=== PATIENT | female | born 1985 | race Caucasian/White ===

== ENCOUNTER 2024-04-22 11:30 | Day surgery (SDC) | payer SELFPAY ==
[2024-04-22 12:08] VITALS: BMI 31.8
[2024-04-22] MEDS ORDERED: hydrALAZINE 20 MG/ML VIAL SLOW IVP PRN (12:34)
[2024-04-22 13:02] LABS: #Basophils 0.04 10x3/uL (0.0-0.2); #Eosinphils 0.07 10x3/uL (0.0-0.5); #Neutrophils 7.27 10x3/uL (1.5-8.4); %Basophils 0.4 % (0.0-2.0); %Eosinophils 0.7 % (0.0-6.0); %Lymphocytes 16.5 % (18.0-47.0); %Monocytes 6.2 % (0.0-10.0); %Neutrophils 75.4 % (40.0-75.0); Hematocrit 34.2 % (34.9-44.5); Hemoglobin 11.2 g/dL (12.0-15.5); Mean Corpuscular HGB CONC 32.7 g/dL (32.0-36.0); Mean Corpuscular Hemoglobin 26.2 pg (27.0-33.0); Mean Corpuscular Volume 80.1 fL (81.6-98.3); Mean Platelet Volume 11.1 fL (7.4-10.4); Platelet Count 215 10x3/uL (150-450); RBC Distribution Width 15.4 % (11.5-14.5); Red Blood Cell (RBC) Count 4.27 10x6/uL (3.90-5.03); White Blood Cell (WBC) Count 9.7 10x3/uL (3.5-10.5)
[2024-04-22 13:06] LABS: Creatinine, Urine 30.84 mg/dL (47-110); Protein, Urine Random Quant Less than 10 mg/dL (1-14)
[2024-04-22 13:21] LABS: ALT (SGPT) 12 U/L (8-55); AST (SGOT) 18 U/L (5-34); Albumin 2.9 g/dL (3.5-5.0); Alkaline Phosphatase 103 U/L (40-110); Anion Gap 12 mmol/L (10-20); BUN (Urea Nitrogen) 8 mg/dL (7.0-18.7); Bilirubin, Total 0.4 mg/dL (0.2-1.2); Calc. Creatinine Clearance 125 mL/min (70-130); Carbon Dioxide 21 mmol/L (22-29); Chloride 106 mmol/L (98-107); Estimated GFR 98; Globulin 3.6 g/dL (2.4-3.5); Glucose 80 mg/dL (70-105); Potassium 3.9 mmol/L (3.5-5.1); Protein, Total 6.5 g/dL (6.0-8.3); Sodium 135 mmol/L (136-145)
[2024-04-22] MEDS: Morphine 4 MG/ML VIAL ONE (14:38)
[2024-04-22] MEDS ORDERED: Morphine 4 MG/ML VIAL IM SCH (14:45)
[2024-04-22] MEDS ORDERED: Lactated Ringer's 1,000 ML IV SCH (15:45)
[2024-04-22] MEDS: Morphine 4 MG/ML VIAL SLOW IVP SCH (16:29)
[2024-04-22 19:47] LABS: Bilirubin Neg (Negative); Blood, Urine Negative (Negative); Clarity Clear (Clear); Glucose, Urine (Dipstick) Normal (Negative); Ketone, Urine Negative (Negative); Leukocyte Negative (Negative); Nitrite Negative (Negative); Protein, Urine (Dipstick) Negative (Neg-Trace); Specific Gravity, Urine 1.015 (1.005-1.030); Urobilinogen Normal mg/dL (Less than 2)
[2024-04-22 20:04] LABS: Bacteria/HPF 1+ HPF (None Seen); CAUTI Indications for Culture Pregnancy; RBC/HPF None Seen HPF (0-3); Squamous Epithelial 0-3 HPF (0-3); WBC/HPF 0-3 HPF (0-3)
[2024-04-22 20:05] LABS: Urine Culture Reflex Yes Yes
== END 2024-04-22 17:09 | disposition home or self-care (01) ==
LOC: CSHLD/OP 11:30
PROVIDERS: ATTEND Obstetrics & Gynecology
DX: O99.891 Other specified diseases and conditions complicating pregnancy (principal); R03.0 Elevated blood-pressure reading, without diagnosis of hypertension; O47.03 False labor before 37 completed weeks of gestation, third trimester; O34.219 Maternal care for unspecified type scar from previous cesarean delivery; Z3A.36 36 weeks gestation of pregnancy; Z79.899 Other long term (current) drug therapy
CPT/HCPCS: 80053; 81001; 82570; 84156; 85025; 87086; J2270

== ENCOUNTER 2024-04-27 07:05 | Inpatient (IN) | payer SELFPAY ==
[2024-04-26 09:52] LABS: Hematocrit 33.6 % (34.9-44.5); Hemoglobin 11.2 g/dL (12.0-15.5); Mean Corpuscular HGB CONC 33.3 g/dL (32.0-36.0); Mean Corpuscular Hemoglobin 26.6 pg (27.0-33.0); Mean Corpuscular Volume 79.8 fL (81.6-98.3); Mean Platelet Volume 11.1 fL (7.4-10.4); Platelet Count 209 10x3/uL (150-450); RBC Distribution Width 15.5 % (11.5-14.5); Red Blood Cell (RBC) Count 4.21 10x6/uL (3.90-5.03); White Blood Cell (WBC) Count 9.1 10x3/uL (3.5-10.5)
[2024-04-26 10:15] LABS: Syphilis Antibody Nonreactive (Nonreactive); Syphilis Antibody Index 0.04 S/CO (<1.00 Non-Reactive)
[2024-04-26 10:16] LABS: HBsAg Index 0.16 S/CO (0-0.99); Hep B Surf Ag Non-Reactive S/CO (NonReactive)
[2024-04-27] MEDS: Lactated Ringer's 1,000 ML IV SCH (07:30)
[2024-04-27] MEDS ORDERED: CEFAZOLIN 2 GM in Sodium Chloride 0.9% 100 ML IVPB SCH (08:10)
[2024-04-27] MEDS ORDERED: Ondansetron PF 4 MG/2 ML Vial IVP PRN ×4 (08:10→13:01)
[2024-04-27] MEDS ORDERED: Oxytocin 30 units/NS 500 ML 500 ML IV SCH ×2 (08:10→13:01)
[2024-04-27] MEDS ORDERED: Bicitra 30 ML UDCUP PO PRN (08:10)
[2024-04-27] MEDS ORDERED: Promethazine HCl 25 MG/ML VIAL IM PRN ×2 (08:10→09:56)
[2024-04-27] MEDS ORDERED: Famotidine/PF 20 mg/2ml Vial SLOW IVP PRN (08:10)
[2024-04-27] MEDS ORDERED: fentaNYL 50 mcg/mL 1 mL Vial SLOW IVP PRN (08:10)
[2024-04-27] MEDS ORDERED: hydrALAZINE 20 MG/ML VIAL SLOW IVP PRN ×2 (08:10→13:01)
[2024-04-27] MEDS ORDERED: HYDROmorphone 0.5 MG/0.5 ML SYRINGE SLOW IVP PRN ×2 (09:56→16:37)
[2024-04-27] MEDS ORDERED: Naloxone HCl 0.4 mg/ml Vial IV PRN (09:56)
[2024-04-27] MEDS ORDERED: Meperidine HCl/PF 25 MG (1 mL) VIAL SLOW IVP PRN (09:56)
[2024-04-27] MEDS ORDERED: Naloxone HCl 0.4 mg/ml Vial IVP PRN ×2 (09:56)
[2024-04-27] MEDS ORDERED: Moisturizing Cream (Eucerin) 113 GM JAR TOP PRN (09:56)
[2024-04-27] MEDS ORDERED: Communication Order-Pharmacy FS SCH (10:00)
[2024-04-27 10:44] VITALS: BMI 31.8
[2024-04-27] MEDS: Carboprost 250 MCG/ML AMP ONE (10:45)
[2024-04-27] MEDS: Tranexamic Acid 1,000 MG/10 ML VIAL ONE (10:46)
[2024-04-27] MEDS: Misoprostol 200 MCG TAB ONE (10:46)
[2024-04-27] MEDS: Dexamethasone 4 mg/ml Vial ONE (10:46)
[2024-04-27] MEDS: Morphine PF 10 MG/10 ML VIAL ONE (10:46)
[2024-04-27] MEDS: Phenylephrine 40 MG/NS 250 ML 250 ML ONE (10:46)
[2024-04-27] MEDS: Ondansetron PF 4 MG/2 ML Vial ONE (10:47)
[2024-04-27] MEDS: fentaNYL 50 mcg/mL 1 mL Vial ONE (10:47)
[2024-04-27] MEDS: Erythromycin Base 0.5% Oint 1 GM TUBE ONE (10:47)
[2024-04-27] MEDS: Phytonadione Neonatal 1 MG/0.5 ML AMP ONE (10:47)
[2024-04-27] MEDS: Oxytocin 10 UNITS/ML VIAL ONE (10:47)
[2024-04-27] MEDS: Promethazine HCl 25 MG/ML VIAL ONE (10:47)
[2024-04-27] MEDS: Ketorolac Tromethamine 30 MG (1 mL) VIAL IVP SCH (11:44)
[2024-04-27] MEDS: fentaNYL 50 mcg/mL 1 mL Vial SLOW IVP PRN (12:10)
[2024-04-27] MEDS ORDERED: Bisacodyl 10 MG SUPP PR PRN (13:01)
[2024-04-27] MEDS ORDERED: Acetaminophen 325 MG TAB PO PRN (13:01)
[2024-04-27] MEDS ORDERED: Lanolin Ointment 7 GM TUBE TOP PRN (13:01)
[2024-04-27] MEDS: Ketorolac Tromethamine 30 MG (1 mL) VIAL IVP PRN (20:12)
[2024-04-27] MEDS: diphenhydrAMINE 50 MG/ML VIAL IVP PRN (20:21)
[2024-04-27] MEDS: Docusate 100 MG CAP PO SCH (20:39)
[2024-04-27] MEDS: Ferrous Sulfate 325 MG TAB PO SCH (21:42)
[2024-04-27] MEDS ORDERED: HYDROcodone/Acetaminophen 5/325 mg Tablet PO PRN (22:30)
[2024-04-27] MEDS: HYDROcodone/Acetaminophen 5/325 mg Tablet PO PRN (22:59)
[2024-04-28 04:34] LABS: Hematocrit 28.7 % (34.9-44.5); Hemoglobin 9.2 g/dL (12.0-15.5); Mean Corpuscular HGB CONC 32.1 g/dL (32.0-36.0); Mean Corpuscular Hemoglobin 25.9 pg (27.0-33.0); Mean Corpuscular Volume 80.8 fL (81.6-98.3); Mean Platelet Volume 11.4 fL (7.4-10.4); Platelet Count 172 10x3/uL (150-450); RBC Distribution Width 15.6 % (11.5-14.5); Red Blood Cell (RBC) Count 3.55 10x6/uL (3.90-5.03)
[2024-04-28] MEDS: Prenatal Vitamin 1 TAB PO SCH (07:24)
[2024-04-28] MEDS: Sertraline 25 MG TAB PO SCH (10:11)
[2024-04-28] MEDS: Ibuprofen 800 MG TAB PO SCH ×2 (14:38→18:00)
[2024-04-28] MEDS: Simethicone Chewable 80 MG TAB PO PRN (19:25)
[2024-04-29] MEDS: Boostrix 0.5 ML (Tdap) VIAL (>/=7 yrs of age) IM ONE (08:04)
[2024-04-29 09:09] VITALS: BP 111/56; TEMP 97.6
== END 2024-04-29 11:30 | disposition home or self-care (01) | DRG 785 ==
LOC: CSHLD 07:05 → CSHPP 12:50
PROVIDERS: ADMIT Obstetrics & Gynecology; ATTEND Obstetrics & Gynecology
PROC: 10D00Z1 Extraction of Products of Conception, Low, Open Approach (ICD-10-PCS; principal; 2024-04-27)
PROC: 0UT70ZZ Resection of Bilateral Fallopian Tubes, Open Approach (ICD-10-PCS; 2024-04-27)
DX: O34.211 Maternal care for low transverse scar from previous cesarean delivery (principal); O14.04 Mild to moderate pre-eclampsia, complicating childbirth; Z3A.37 37 weeks gestation of pregnancy; Z37.0 Single live birth; O99.02 Anemia complicating childbirth
CPT/HCPCS: 36415; 51702; 85027; 86780; 86850; 86900; 86901; 87340; 88302; J1100; J1200; J1885; J2274; J2405; J2550; J2590; J3010; J7120